=== PATIENT | female | born 1995 | race African-American/Black ===

== ENCOUNTER 2016-10-25 20:49 | Emergency (ER) | payer MEDICAID ==
[~2016-10-25] VITALS: Ht 165.1 cm; Wt 57.0 kg
[2016-10-25] MEDS ORDERED: KETOROLAC 60MG/2ML VIAL IM ONE (22:15)
[2016-10-25 23:13] VITALS: BP 125/76
== END 2016-10-25 23:13 | disposition home or self-care (01) ==
LOC: ER 20:50
DX: M54.5 Low back pain (principal); I10 Essential (primary) hypertension; F17.200 Nicotine dependence, unspecified, uncomplicated; F12.10 Cannabis abuse, uncomplicated
CPT/HCPCS: 81025; 96372; 99283; J1885